=== PATIENT | female | born 1935 | race Caucasian/White ===

== ENCOUNTER 2018-09-22 15:59 | Emergency (ER) | payer OTHER ==
[~2018-09-22] VITALS: Ht 172.7 cm; Wt 81.7 kg
--- NOTE | ~2018-09-22 | EKG ---
[address] [place] [address] ELECTROCARDIOGRAM REPORT Name: ROBYN US Room #: DEP [facility]#: [id number] Admission: 09/22/18 Attend Phys: Discharge: 09/22/18 Date of : 39 Report #: [id number] THIS REPORT FOR: //name// [facility] ED Test Date: 2018-09-22 Test Time: 17:26:45 Pat Name: ROBYN US Department: Room: Gender: F Bonsai Tender: SARA : 1935 Requested By: Doreen Haskins Order Number: [id number] MD: Nestor Castrejon Measurements Intervals [place] Rate: 73 P: CA: 158 QRS: -10 QRSD: 100 T: 29 QT: 393 QTc: 433 Interpretive Statements Atrial-paced complexes Ventricular premature complex Compared to ECG 05/30/2015 17:55:22 Ventricular premature complex(es) now present atrial pacing is now present Electronically Signed On 09-23-2018 9:25:47 [employer]INAL SURGEON by Nestor Castrejon [email or web address] <ELECTRONICALLY SIGNED> By: Nestor Castrejon MD, [facility] 09/23/18 0925 25 25 Nestor Castrejon MD, [facility] /EPI
[~2018-09-22 15:59] MED LIST: CENTRUM SILVER1 EAC4; MOBIC15 MG; PRINIVIL5 MG; RISPERDAL 1 MG T1 MG; VITAMIN D1000 UNIT
[2018-09-22 17:15] LABS: ANION GAP 9 mmol/L (7-16); BUN 17 mg/dL (7-18); CALCIUM 9.3 mg/dL (8.5-10.1); CHLORIDE 105 mmol/L (98-107); CO2 26 mmol/L (21-32); CREATININE 1.2 mg/dL (0.6-1.0); GLUCOSE 153 mg/dL (74-106); POTASSIUM 3.7 mmol/L (3.5-5.1); SODIUM 140 mmol/L (136-145)
[2018-09-22 17:23] LABS: ALBUMIN 3.5 g/dL (3.4-5.0); SGOT 17 U/L (15-37); SGPT 19 U/L (30-65); TOTAL BILIRUBIN 0.4 mg/dL (<0.1-1.0); TROPONIN-I <0.06 ng/mL (<0.06)
[2018-09-22 17:45] LABS: ABSOLUTE NEUTROPHILS 4.5 thou/uL (1.4-8.2); BASOPHILS 0.7 % (0.0-2.0); EOSINOPHILS 0.4 % (0.0-3.0); HEMATOCRIT 30.5 % (37.0-47.0); HEMOGLOBIN 10.5 gm/dL (12.0-15.0); LYMPHOCYTES 12.9 % (24.0-44.0); MCH 32.5 pg (26.0-34.0); MCHC 34.4 g/dL (28.0-37.0); MCV 94.4 fL (80.0-100.0); MONOCYTES 7.3 % (1.0-8.0); PLATELET COUNT 148 thou/uL (150-400); POLYS 78.7 % (36.0-66.0); RBC 3.22 mil/uL (4.20-5.00); RDW 13.6 % (10.5-14.5); WBC 5.7 thou/uL (4.0-11.0)
[2018-09-22 18:21] LABS: URINE BILIRUBIN NEGATIVE (Negative); URINE BLOOD NEGATIVE (Negative); URINE CLARITY CLEAR; URINE COLOR YELLOW; URINE GLUCOSE-RANDOM* NEGATIVE (Negative); URINE KETONES NEGATIVE (Negative); URINE LEUKOCYTES-REFLEX NEGATIVE (Negative); URINE NITRITE-REFLEX NEGATIVE (Negative); URINE PROTEIN (DIPSTICK) NEGATIVE (Negative); URINE SPECIFIC GRAVITY 1.015 (1.005-1.035); URINE UROBILINOGEN 0.2 E.U./dl (0.2-1.0)
[2018-09-22 18:23] LABS: SSA (PROTEIN CONFIRMATORY) NEGATIVE (Negative)
== END 2018-09-22 19:12 | disposition home or self-care (01) ==
LOC: ER 15:59
PROVIDERS: Physician Assistant
DX: I95.1 Orthostatic hypotension (principal); I10 Essential (primary) hypertension; Z90.89 Acquired absence of other organs